=== PATIENT | female | born 1985 | race Caucasian/White ===

== ENCOUNTER → 2020-08-14 | Outpatient (CLI) | payer BC, OTHER ==
[~2020-08-14] MED LIST: COLACE 100MG C100 MG PO
== END ==
LOC: RAD 07:30
PROC: BU1 Imaging, Female Reproductive System, Fluoroscopy (ICD-10-PCS; principal; 2020-08-14)
DX: N97.1 Female infertility of tubal origin (principal)
CPT/HCPCS: 74740; Q9962

== ENCOUNTER 2021-04-18 05:25 | Outpatient (CLI) | payer BC | END 2021-04-18 10:26 | disposition home or self-care (01) | LOC: GENOP 05:25 | DX: O47.03 False labor before 37 completed weeks of gestation, third trimester (principal); Z3A.36 36 weeks gestation of pregnancy; O09.523 Supervision of elderly multigravida, third trimester; O99.891 Other specified diseases and conditions complicating pregnancy; R12 Heartburn; M41.9 Scoliosis, unspecified | CPT/HCPCS: 81001; 96360; 96361 ==

== ENCOUNTER 2021-04-25 19:56 | Inpatient (IN) | payer BC ==
[2021-04-25 21:08] LABS: HEMOGLOBIN 10.9 gm/dl (12.3-15.3); RED BLOOD COUNT 3.96 M/UL (4.00-5.10); WHITE BLOOD COUNT 12.1 K/UL (4.5-11.0)
[2021-04-26] MEDS ORDERED: IBUPROFEN600 MG PO (01:23)
[2021-04-26] MEDS ORDERED: FEROSUL325 MG PO (01:23)
[2021-04-26] MEDS ORDERED: DOCUSATE SODIU250 MG PO (01:23)
[2021-04-26 07:17] LABS: HEMOGLOBIN 10.9 gm/dl (12.3-15.3)
[2021-04-27] MEDS ORDERED: PROCTOFOAM-HC 110 G1 PR (10:53)
== END 2021-04-27 12:29 | disposition home or self-care (01) | DRG 807 ==
LOC: GENOP 19:56 → OB 20:59
PROVIDERS: ADMIT Obstetrics & Gynecology
PROC: 10E0XZZ Delivery of Products of Conception, External Approach (ICD-10-PCS; principal; 2021-04-26)
DX: O99.824 Streptococcus B carrier state complicating childbirth (principal); Z37.0 Single live birth; Z3A.37 37 weeks gestation of pregnancy; Z88.0 Allergy status to penicillin
CPT/HCPCS: 36415; 51702; 81001; 83518; 85014; 85018; 85025; 90715; J2590; U0002